=== PATIENT | male | born 1995 ===

== ENCOUNTER 2019-03-20 14:54 | Emergency (ER) | payer BC ==
[2019-03-20 15:18] VITALS: BP 125/81
--- NOTE | 2019-03-20 15:41 | UC ---
Lower Extremity/Ankle HPI - HPI Summary HPI Summary: Playing basketball yesterday and came down on the outside of the left ankle. Unable to just "walk it off". Worsening swelling and pain today - History of Current Complaint Chief Complaint: UCLowerExtremity Stated Complaint: LEFT ANKLE INJURY Hx Obtained From: Patient Onset/Duration: Sudden Onset, Lasting Days, Worse Since - today Severity Initially: Moderate Severity Currently: Moderate Pain Intensity: 5 Aggravating Factor(s): Standing, Ambulation Alleviating Factor(s): Rest, Elevation, Ice Able to Bear Weight: Yes - Allergies/Home Medications Allergies/Adverse Reactions: Allergies Allergy/AdvReac Type Severity Reaction Status Date / Time No Known Allergies Allergy Verified 03/20/19 15:18 Home Medications: Home Medications NK [No Home Medications Reported] 03/20/19 [History Confirmed 03/20/19] PMH/Surg Hx/FS Hx/Imm Hx Previously Healthy: Yes - Surgical History Surgical History: None - Family History Known Family History: Positive: Diabetes Negative: Cardiac Disease, Hypertension - Social History Occupation: Student Alcohol Use: Occasionally Substance Use Type: None Smoking Status (MU): Former Smoker Review of Systems All Other Systems Reviewed And Are Negative: Yes Musculoskeletal: Positive: Arthralgia - left ankle Physical Exam Triage Information Reviewed: Yes Appearance: Well-Appearing, No Pain Distress, Well-Nourished Vital Signs: Initial Vital Signs Temp 99.3 F 03/20/19 15:10 Pulse 97 03/20/19 15:10 Resp 18 03/20/19 15:10 BP 125/81 03/20/19 15:10 Pulse Ox 97 03/20/19 15:10 Vital Signs Reviewed: Yes Eyes: Positive: Conjunctiva Clear Neck exam: Normal Respiratory Exam: Normal Cardiovascular Exam: Normal Musculoskeletal: Positive: ROM Limited @ - left ankle flexion and extension, Other: - tender medial and lateral malleolus and ant/post TFL No 5th metatarsal tenderness Neurological Exam: Normal Psychological Exam: Normal Skin Exam: Normal Diagnostics - Radiology No standard instances Radiology Interpretation Completed By: Radiologist Summary of Radiographic Findings: ? distal medial fibula chip fracture Lower Extremity Course/Dx - Differential Dx/Diagnosis Differential Diagnosis/HQI/PQRI: Contusion, Dislocation, Fracture (Closed), Sprain, Strain Provider Diagnosis: Inversion sprain of left ankle Discharge - Sign-Out/Discharge Documenting (check all that apply): Patient Departure All imaging exams completed and their final reports reviewed: Yes - Discharge Plan Condition: Stable Disposition: HOME Patient Education Materials: Ankle Sprain (ED), Ankle Stirrup Splint (ED), Crutch Instructions (ED) Referrals: No Primary Care Phys,NOPCP [Primary Care Provider] - Additional Instructions: Ice for the next 24 hours and then you can use heat. The radiologist had a question of a chip fracture. PLEASE MAKE A FOLLOW UP THIS WEEK WITH AN ORTHOPEDIC SURGEON AT HOME AND STAY ON THE CRUTCHES. - Billing Disposition and Condition Condition: STABLE Disposition: Home
== END 2019-03-20 16:30 | disposition home or self-care (01) ==
LOC: UCEAST 14:54
DX: S93.402A Sprain of unspecified ligament of left ankle, initial encounter (principal); X50.1XXA Overexertion from prolonged static or awkward postures, initial encounter; Y93.67 Activity, basketball; Y92.310 Basketball court as the place of occurrence of the external cause; Z87.891 Personal history of nicotine dependence
CPT/HCPCS: 99203; G0463